=== PATIENT | male | born 1975 | race American Indian/Alaskan Native ===

== ENCOUNTER 2017-12-05 17:53 | Emergency (ER) | payer OTHER ==
[2017-12-05 17:56] VITALS: BP 161/84; PULSE 98; RESP 16; TEMP 99.2; O2SAT 99
[2017-12-05] MEDS ORDERED: Oxycodone/Acetaminophen 5/325 mg Tab PO STA (18:35)
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
--- NOTE | 2017-12-06 09:02 | RAD ---
PROCEDURE: Cervical Spine Radiographs. HISTORY: Pain. COMPARISON: None. FINDINGS: BONES: Normal cervical curvature is evident without fracture or spondylolisthesis identified. Advanced degenerative spondylosis appreciated at C5-6 with limited disc height loss present as well. There is multilevel facet joint arthropathy appreciated predominantly at the mid inferior levels with the odontoid process appear intact. DISC SPACES: As above. SOFT TISSUES: Normal. No prevertebral soft tissue swelling. OTHER FINDINGS: None. IMPRESSION: Limited but focused degenerative disc disease seen only on C5-6 as per above. No definite fracture or spondylolisthesis identified. CT or MRI are available for follow-up if clinically warranted.
== END 2017-12-05 20:15 | disposition home or self-care (01) ==
LOC: H.ER 17:53
DX: S16.1XXA Strain of muscle, fascia and tendon at neck level, initial encounter (principal); V43.52XA Car driver injured in collision with other type car in traffic accident, initial encounter; Y92.410 Unspecified street and highway as the place of occurrence of the external cause